=== PATIENT | male | born 2005 | race Caucasian/White ===

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

== ENCOUNTER 2023-05-20 10:35 | Emergency (ER) | payer SELFPAY ==
[2023-05-20] MEDS ORDERED: fentaNYL 50 MCG/ML SDV IVPUSH ONE (11:00)
[2023-05-20] MEDS ORDERED: Ketorolac 30 MG/ML SDV IVPUSH ONE (11:00)
[2023-05-20] MEDS ORDERED: Sodium Chloride 0.9% 1,000 ML IV ONE (11:44)
[2023-05-20] MEDS ORDERED: Propofol 200 MG/20 ML SDV IVPUSH ONE ×2 (11:58→12:16)
[2023-05-20] MEDS ORDERED: Midazolam 5 MG/ML SDV IVPUSH ONE (11:58)
[2023-05-20] MEDS: Morphine 4 MG/ML Syringe IVPUSH ONE ×2 (12:10→13:13)
== END 2023-05-20 13:35 | disposition home or self-care (01) ==
LOC: MW.ED 10:35
DX: S43.005A Unspecified dislocation of left shoulder joint, initial encounter (principal); Z86.16 Personal history of COVID-19; W18.30XA Fall on same level, unspecified, initial encounter; Y93.39 Activity, other involving climbing, rappelling and jumping off
CPT/HCPCS: 23650; 73020; 73030; 96374; 96375; 99152; 99153; 99283; J1885; J2250; J2704; J3010; J7030; 99284; J2270

== ENCOUNTER 2024-01-31 01:42 | Emergency (ER) | payer SELFPAY | END 2024-01-31 03:24 | disposition home or self-care (01) | LOC: MW.ED 01:42 | DX: S06.0X0A Concussion without loss of consciousness, initial encounter (principal); S05.12XA Contusion of eyeball and orbital tissues, left eye, initial encounter; F10.120 Alcohol abuse with intoxication, uncomplicated; F17.210 Nicotine dependence, cigarettes, uncomplicated; Z75.8 Other problems related to medical facilities and other health care; Z79.899 Other long term (current) drug therapy; Y04.0XXA Assault by unarmed brawl or fight, initial encounter; Y93.89 Activity, other specified; Y90.9 Presence of alcohol in blood, level not specified | CPT/HCPCS: 70450; 70450-26; 72125; 72125-26; 99283; 99284 ==